=== PATIENT | male | born 1945 | race Caucasian/White ===

== ENCOUNTER 2017-05-18 16:07 | Inpatient (IN) | payer MEDICARE, BC ==
[~2017-05-18] VITALS: Ht 174 cm; Wt 90.2 kg
[~2017-05-18 16:07] MED LIST: LISI-363 PO; METO50CR PO; SIMV5TAB3 PO
[2017-05-18] MEDS ORDERED: ACETAMINOPHEN/HYDROcodone 325 MG/5 MG TAB PO PRN (19:45)
[2017-05-18] MEDS ORDERED: LACTULOSE SYRUP 20 GM/30 ML CUP PO PRN (19:45)
[2017-05-18 20:00] VITALS: BP 167/77; PULSE 90; RESP 18; TEMP 99.8; O2SAT 97
[2017-05-18] MEDS ORDERED: DEXTROSE 50% IN WATER 50 ML VIAL(D50) IV PUSH PRN (20:15)
[2017-05-18] MEDS ORDERED: GLUCAGON 1 MG/ML VIAL OTHER PRN (20:15)
--- NOTE | 2017-05-18 20:21 | HHI.HP ---
HPI Service [facility] Hospitalists Primary Care Physician Non-Staff Admission Diagnosis Diagnoses: Travel History International Travel<30 Days: No Contact w/Intl Traveler <30 Da: No Traveled to Known Affected Are: No History of Present Illness 71-year-old male with past medical history significant for coronary artery disease status post CABG 5, type 2 diabetes mellitus, hypertension and hyperlipidemia presents to [facility] after sustaining a right femoral neck fracture. The patient reports he was walking his dog when his dog pulled him and he lost his balance falling directly onto his right hip on the concrete. He was taken to [facility] where an x-ray of the hip showed an acute significantly displaced and angulated transcervical right hip fracture involving the right femoral neck. The patient was transferred to [facility] for surgical repair. Laboratory values performed at [facility] were within normal limits, reviewed by me. The patient did have a chest x-ray done that showed pleural- parenchymal scarring above the lateral aspect of the left upper lung with an ill -defined opacity in the vicinity of the lingula. Recommend further evaluation with contrast CT. The patient has no history of lung disease and denies any shortness of breath. Review of Systems Denies fever or chills Denies blurry vision, otorrhea, rhinorrhea Denies sore throat and cough No chest pain, palpitations, shortness of breath No abdominal pain Denies constipation/diarrhea/nausea/vomiting Denies muscle pain/weakness. Endorses right hip pain. No rashes Past Family Social History Past Medical History Type 2 diabetes mellitus on metformin CAD Chronic low back/left hip pain Hypertension Hyperlipidemia Past Surgical History CABG 5 in 2009 Discectomy Tonsillectomy Reported Medications Reported Meds & Active Scripts Active Reported Metoprolol Succinate ER 50 mg (Metoprolol Succinate) 50 Mg Tab 50 Mg PO DAILY Simvastatin 5 Mg Tab 1 Tab PO HS Lisinopril 20 mg (Lisinopril) 20 Mg Tab 1 Tab PO DAILY Metformin Allergies: Coded Allergies: No Known Allergies (Unverified Allergy, Unknown, 05/18/17) Family History Mother with breast cancer. Father after a hip fracture, no known medical comorbidities. Social History Denies current tobacco use, has a [id number] history of smoking quit 1979. Occasional alcohol. Denies marijuana or illicit drugs. Physical Exam Physical Exam GENERAL: male lying in bed SKIN: No rashes, ecchymoses or lesions. Cool and dry. HEAD: Atraumatic. Normocephalic. No temporal or scalp tenderness. EYES: Pupils equal round and reactive. Extraocular motions intact. No scleral icterus. No injection or drainage. ENT: Nose without bleeding, purulent drainage or septal hematoma. Throat without erythema, tonsillar hypertrophy or exudate. Uvula midline. Airway patent. NECK: Trachea midline. No JVD or lymphadenopathy. Supple, nontender, no meningeal signs. CARDIOVASCULAR: Regular rate and rhythm without murmurs, gallops, or rubs. RESPIRATORY: Clear to auscultation. Breath sounds equal bilaterally. No wheezes , rales, or rhonchi. GASTROINTESTINAL: Abdomen soft, non-tender, nondistended. No hepato-splenomegaly , or palpable masses. No guarding. MUSCULOSKELETAL: Extremities without clubbing, cyanosis, or edema. No joint tenderness, effusion, or edema noted. 2+ peripheral pulses. NEUROLOGICAL: Awake and alert. Cranial nerves II through XII intact. Motor and sensory grossly within normal limits. Normal speech. Caprini VTE Risk Assessment Caprini VTE Risk Assessment: Mod/High Risk (score >= 2) Caprini Risk Assessment Model Point Value = 1 Point Value = 2 Point Value = 3 Point Value = 5 Age 41-60 Minor surgery BMI > 25 kg/m2 Swollen legs Varicose veins or History of unexplained or recurrent spontaneous Oral contraceptives or hormone replacement Sepsis (< 1 month) Serious lung disease, including pneumonia (< 1 month) Abnormal pulmonary function Acute myocardial infarction Congestive heart failure (< 1 month) History of inflammatory bowel disease Medical patient at bed rest Age 61-74 Arthroscopic surgery Major open surgery (> 45 min) Laparoscopic surgery (> 45 min) Malignancy Confined to bed (> 72 hours) Immobilizing plaster cast Central venous access Age >= 75 History of VTE Family history of VTE Factor V Leiden Prothrombin [id number] Lupus anticoagulant Anticardiolipin antibodies Elevated serum homocysteine Heparin-induced thrombocytopenia Other congenital or acquired thrombophilia Stroke (< 1 month) Elective arthroplasty Hip, pelvis, or leg fracture Acute spinal cord injury (< 1 month) Prophylaxis Regimen Total Risk Factor Score Risk Level Prophylaxis Regimen 0-1 Low Early ambulation 2 Moderate Order ONE of the following: *Sequential Compression Device (SCD) *Heparin 5000 units SQ BID 3-4 Higher Order ONE of the following medications: *Heparin 5000 units SQ TID *Enoxaparin/Lovenox 40 mg SQ daily (WT < 150 kg, CrCl > 30 mL/min) *Enoxaparin/Lovenox 30 mg SQ daily (WT < 150 kg, CrCl > 10-29 mL/min) *Enoxaparin/Lovenox 30 mg SQ BID (WT < 150 kg, CrCl > 30 mL/min) AND/OR *Sequential Compression Device (SCD) 5 or more Highest Order ONE of the following medications: *Heparin 5000 units SQ TID (Preferred with Epidurals) *Enoxaparin/Lovenox 40 mg SQ daily (WT < 150 kg, CrCl > 30 mL/min) *Enoxaparin/Lovenox 30 mg SQ daily (WT < 150 kg, CrCl > 10-29 mL/min) *Enoxaparin/Lovenox 30 mg SQ BID (WT < 150 kg, CrCl > 30 mL/min) AND *Sequential Compression Device (SCD) Assessment and Plan Assessment and Plan 71-year-old male with coronary artery disease status post CABG 5, hypertension , hyperlipidemia and type 2 diabetes mellitus presents to [facility] after sustaining a right femoral neck fracture. 1. Right femoral neck fracture Orthopedic surgery consulted, appreciate assistance Nothing by mouth after midnight Pain control with [place] and morphine 2. Abnormal chest x-ray Chest x-ray done at [facility] significant for pleural scarring about the lateral aspect of the left lung with an ill-defined opacity in the vicinity of the lingula Recommend contrast chest CT for further characterization once patient clinically stable 3. Type 2 diabetes mellitus Holding home metformin Sliding scale insulin 4. Hypertension Continue home metoprolol and lisinopril 5. Hyperlipidemia Continue home statin FEN Nothing by mouth after midnight NS at 100cc/hr Electrolytes within normal limits, monitor Holding pharmacologic anticoagulation in anticipation of OR tomorrow Physician Certification 2 Midnight Certification Type: Admission for Inpatient Services Order for Inpatient Services The services are ordered in accordance with Medicare regulations or non- Medicare payer requirements, as applicable. In the case of services not specified as inpatient-only, they are appropriately provided as inpatient services in accordance with the 2-midnight benchmark. Estimated LOS (days): 2 2 days is the estimated time the patient will need to remain in the hospital, assuming treatment plan goals are met and no additional complications. Post-Hospital Plan: Not yet determined Ella Alva MD May 18, 2017 20:21
[2017-05-18 22:30] VITALS: PULSE 81
[2017-05-18] MEDS: INSULIN ASPART SUPPLEMENTAL SCALE SQ SCH (22:30)
[2017-05-18 22:54] VITALS: PULSE 75
[2017-05-18] MEDS: MORPHINE SULFATE 4 MG/ML INJ IV PUSH PRN (22:54)
[2017-05-18] MEDS: SODIUM CHLOR 0.9% 1000 ML INJ 1,000 ML IV SCH (22:54)
[2017-05-18] MEDS: PRAVASTATIN SOD 10 MG TAB PO SCH (22:55)
[2017-05-18] MEDS ORDERED: POVIDONE IODINE 5% (ANTISEPSIS KIT) 4 APPLICATIONS EACH NARE PRN (23:45)
[2017-05-18] MEDS ORDERED: CHLORHEXIDINE GLUCONATE 2 % 1 PACK (2 CLOTHS) TOPICAL PRN (23:45)
[2017-05-18] MEDS ORDERED: LACTATED RINGER'S 1000 ML IV PRN (23:45)
[2017-05-18] MEDS ORDERED: SODIUM CHLORID 0.9% 500 ML IV PRN (23:45)
[2017-05-19] VITALS (7 sets, daily range): BP systolic 142–205; BP diastolic 67–84; PULSE 67–83; RESP 16–18; TEMP 97.2–100.8; O2SAT 94–97
[2017-05-19] MEDS: ACETAMINOPHEN/HYDROcodone 325 MG/10 MG TAB PO PRN ×3 (01:18→20:09)
[2017-05-19] MEDS: MORPHINE SULFATE 4 MG/ML INJ IV PUSH PRN ×3 (03:21→17:13)
[2017-05-19 06:06] LABS: AUTOMATED NEUTROPHIL # 9.7 TH/MM3 (1.8-7.7); BASOPHIL % 0.3 % (0.0-2.0); EOSINOPHIL # 0.5 TH/MM3 (0-0.4); EOSINOPHIL % 3.8 % (0.0-4.0); HEMATOCRIT 36.3 % (39.0-51.0); HEMO FLAGS DIFF FINAL; LYMPH % 10.3 % (9.0-44.0); LYMPHOCYTE # 1.3 TH/MM3 (1.0-4.8); MEAN CELL VOLUME 91.9 FL (80.0-100.0); MEAN CORPUSCULAR HEMOGLOBIN 30.5 PG (27.0-34.0); MEAN CORPUSCULAR HGB CONC 33.2 % (32.0-36.0); MONO % 6.9 % (0.0-8.0); NEUT % 78.7 % (16.0-70.0); PLATELET COUNT 107 TH/MM3 (150-450); RED BLOOD COUNT 3.95 MIL/MM3 (4.50-5.90); RED CELL DISTRIBUTION WIDTH 16.1 % (11.6-17.2); WHITE BLOOD COUNT 12.3 TH/MM3 (4.0-11.0)
[2017-05-19] MEDS: SODIUM CHLOR 0.9% 1000 ML INJ 1,000 ML IV SCH ×3 (06:21→20:10)
[2017-05-19 06:38] LABS: BICARBONATE 23.8 MEQ/L (21.0-32.0); POTASSIUM 3.7 MEQ/L (3.5-5.1)
[2017-05-19] MEDS: METOPROLOL SUCCINATE 50 MG EXTENDED RELEASE TAB PO SCH (07:50)
[2017-05-19] MEDS: LISINOPRIL 20 MG TAB PO SCH (07:50)
[2017-05-19] MEDS: INSULIN ASPART SUPPLEMENTAL SCALE SQ SCH ×4 (07:50→20:09)
--- NOTE | 2017-05-19 11:54 | RADRPT ---
EXAM DATE/TIME: 05/19/2017 11:15 [facility] COMPARISON: No previous studies available for comparison. INDICATIONS : Right hip pain, fell yesterday. MEDICAL HISTORY : Foot deformity. SURGICAL HISTORY : None. ENCOUNTER: Initial ACUITY: 2 days PAIN SCORE: 10/10 LOCATION: Right hip FINDINGS: A mildly displaced and angulated subcapital right femoral neck fracture is identified. The femoral he ad appears grossly intact and remains situated over the acetabulum. CONCLUSION: Subcapital right femoral neck fracture Chadwick Toney MD on May 19, 2017 at 11:51 Board Certified Radiologist. This report was verified electronically.
--- NOTE | 2017-05-19 13:04 | HHI.PR ---
Subjective Remarks Follow up hip fracture, CAD, diabetes. Patient states that he is having pain in his right hip. No other complaints at this time. Objective Vitals Vital Signs Date Time Temp Pulse Resp B/P (MAP) Pulse Ox O2 Delivery O2 Flow Rate FiO2 05/19/17 11:06 16 05/19/17 08:00 97.2 76 16 152/70 (97) 95 05/19/17 04:00 98.5 78 18 145/74 (97) 96 05/19/17 03:25 17 05/19/17 00:16 Room Air 05/19/17 00:00 99.5 80 18 143/72 (95) 96 05/18/17 22:54 75 05/18/17 22:30 81 05/18/17 20:00 99.8 90 18 167/77 (107) 97 I/O 05/18/17 05/18/17 05/18/17 05/19/17 05/19/17 05/19/17 07:00 15:00 23:00 07:00 15:00 23:00 Intake Total 360 ml 1000 ml Output Total 500 ml Balance 360 ml 500 ml Intake Oral 360 ml 0 ml IV Total 1000 ml Output Urine Total 500 ml # Voids 0 # Bowel Movements 0 0 Result Diagram: 05/19/17 0530 05/19/17 0530 Imaging Last Impressions Hip X-Ray 05/19/17 0000 Signed Impressions: Service Date/Time: Friday, May 19, 2017 11:15 - CONCLUSION: Subcapital right femoral neck fracture Chadwick Toney MD Objective Remarks General: No acute distress. Heart: Regular rate and rhythm. No murmur. Lungs: Clear to auscultation bilaterally. No wheezes, rales, or rhonchi. Breathing is nonlabored. Abdomen: Soft, nontender, nondistended. Extremities: No lower extremity edema. Psych: Alert and oriented. Procedures None Urinary Catheter: No Vascular Central Line Catheter: No A/P Problem List: (1) Fracture of femoral neck, right ICD Code: S72.001A - Fracture of unspecified part of neck of right femur, initial encounter for closed fracture Status: Acute (2) Diabetes mellitus ICD Code: E11.9 - Type 2 diabetes mellitus without complications Status: Chronic (3) Hyperlipidemia ICD Code: E78.5 - Hyperlipidemia, unspecified Status: Chronic (4) Hypertension ICD Code: I10 - Essential (primary) hypertension Status: Chronic Assessment and Plan 1. Right femoral neck fracture: Orthopedic surgery consulted. Planning for surgery tomorrow. Continue pain control. Nothing by mouth after midnight. 2. Abnormal chest x-ray: Chest x-ray that was done at [facility] showed pleural scarring in the lateral aspect of the left lung with an ill-defined opacity in the vicinity of the lingula. Contrast chest CT for further evaluation once patient is clinically stable. 3. Diabetes mellitus type 2: Metformin on hold. Monitor Accu-Cheks and cover with sliding scale insulin. 4. Hypertension: Continue metoprolol, lisinopril. 5. Hyperlipidemia: Continue statin. 6. DVT prophylaxis: Chemical prophylaxis on hold in anticipation of surgery. 7. Coronary artery disease: Currently asymptomatic. Patient has significant history including CABG. Will consult his cook 3 pastry, Dr. Cam, for further evaluation preoperatively. Problem Qualifiers (1) Diabetes mellitus: Ray Herrera MD May 19, 2017 13:04
--- NOTE | 2017-05-19 14:49 | MB ---
cc: ANITA FRANCOIS M.D. DATE OF CONSULTATION: 05/19/2017 REASON FOR CONSULTATION Evaluation for pre-op clearance. CHIEF COMPLAINT Hip fracture. HISTORY OF PRESENT ILLNESS This is a 71-year-old man with known heart disease. He had bypass surgery in the year 2009 for left main and triple-vessel disease. He had a cath in December 2010 showing patent vein grafts to sequential obtuse marginals, diagonal branch and right coronary artery, and patent NEW to the LAD. He does not have anginal symptoms. Prior to his bypass he had indigestion. He does take Nexium currently, but is not having any anginal or chest discomfort or indigestion type symptoms. He is not that active but plays golf and walks his dog. His dog pulled on him and that is how he ended up falling and having the hip fracture. He denies shortness of breath, syncope, pre-syncope, arrhythmias. Denies any swelling in his feet. He is an ex-smoker. He has hypertension, diabetes, elevated cholesterol. He denies noncompliance with his medications. There are no allergies. MEDICATIONS Medications in the office include: 1. 81 mg aspirin. 2. Lisinopril 20 mg. 3. Metformin. 4. Metoprolol 25 mg b.i.d. 5. Nitroglycerin sublingual. 6. Simvastatin 40 mg. ALLERGIES None. PAST SURGICAL HISTORY 1. Back surgery. 2. Bypass surgery. PAST MEDICAL HISTORY 1. Prior iron-deficiency anemia. 2. Meyers's esophagus. 3. Coronary artery disease. 4. Carotid disease. 5. Chronic kidney disease, stage II/III. 6. Type 2 diabetes. 7. Esophageal reflux. 8. Hyperlipidemia. 9. Hypertension. 10.Previous melanoma. 11.Obesity. 12.Degenerate joint disease. REVIEW OF SYSTEMS Notable only for joint pain and back pain. He does say he has diminished peripheral pulses and has seen Dr. Merino before but has not required any follow-up procedures. PHYSICAL EXAMINATION GENERAL: An obese white male in no acute distress. VITAL SIGNS: Charted. HEENT: Unremarkable. NECK: No JVD. No bruits. CHEST: Clear to auscultation. CARDIAC: Normal first and second heart sounds, regular rate and rhythm without murmurs or gallops. ABDOMEN: Soft, nontender. No masses or organomegaly. EXTREMITIES: Diminished pedal pulses. EKG EKG demonstrates sinus rhythm at 81 beats bpm. IMPRESSION AND RECOMMENDATIONS A 71-year-old man with previous bypass surgery has no cardiac symptomatology. His troponin is negative. EKG shows no ischemia. He can be cleared for hip surgery. Cardiac surgical risk is somewhat increased because of multiple risk factors and heart disease, but there is nothing prohibitive that would prevent him from having surgery at this point. Recommend continuing beta blockers throughout the perioperative period. I will be available p.r.n. Please call for any questions. MD KRISSY Sosa/JANET /2:23 PM /2:34 PM MTDTonya
[2017-05-19] MEDS ORDERED: BISACODYL 10 MG SUPP RECTAL PRN (15:15)
[2017-05-19] MEDS ORDERED: LACTULOSE SYRUP 20 GM/30 ML CUP PO PRN (15:15)
[2017-05-19] MEDS ORDERED: MAGNESIUM HYDROXIDE SUSP 30 ML CUP PO PRN (15:15)
[2017-05-19] MEDS ORDERED: SENNOSIDES 8.6 MG TAB PO PRN (15:15)
--- NOTE | 2017-05-19 17:29 | MB ---
cc: GUALBERTO CHRISTIAN DATE OF CONSULTATION: 05/19/2017 REASON FOR CONSULTATION: The patient is a 71-year-old white male who was in his usual state of reasonably good health until the day of admission at which time he reports he was walking his dog and apparently the dog lunged forward causing the patient to lose his balance and fall onto his right hip with the immediate onset of pain being noted. He was unable to ambulate thereafter, for which an ambulance was summoned transporting the patient to the emergency room of [facility]. He underwent initial evaluation at that time including x-ray studies with a fracture of his right hip being identified. The patient thereafter requested to be transferred to [facility] for further disposition including definitive treatment of his hip fracture might be completed. This has been accomplished with orthopedic consultation thereafter being requested of the undersigned physician. PAST MEDICAL HISTORY: The patient's past medical history regarding hospitalizations and surgeries have included cardiac bypass surgery. lumbar diskectomy Tonsillectomy Colonoscopy. MEDICAL ILLNESSES: His medical illnesses include type 2 diabetes Hypertension Hyperlipidemia Coronary artery disease. MEDICATIONS Current medications apparently include 1. Metoprolol 25 mg twice daily. 2. Metformin. 3. Lisinopril 20 mg daily. 4. Simvastatin 40 mg daily 5. 81 mg Aspirin tablet daily. 6. Nitroglycerin as apparently utilized on a p.r.n. basis. 7. The patient advises that he does not conform any specific dietary restrictions with regards to his diabetes. REVIEW OF SYSTEMS review of systems is essentially unremarkable and noncontributory. FAMILY HISTORY The patient has been for 48 years. His is 71 years of age with a history of lupus. He has one son and one daughter both of whom are described as being in good health. Family history is otherwise positive for breast cancer. 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 He completed a college degree at the [employer]. He denies active use of tobacco, ethanol consumption on an occasional basis. PHYSICAL EXAMINATION: IN GENERAL: Physical examination at this time reveals a 71-year-old white male resting quietly in bed with mild distress as related to his right hip. Any attempted motion of the hip joint elicits obvious of pain response. He is maintaining the hip in a slightly flexed and externally rotated orientation. Active toe motion distally. Sensory grossly intact mobility of the left lower extremity is without significant pain but that eliciting contralateral hip discomfort. RADIOLOGIC: A review of the patient's radiographs have demonstrated a mild to moderately displaced subcapital femoral neck fracture in varus orientation. IMPRESSION Displaced right femoral neck fracture. PLAN Findings were reviewed with the patient in the presence of his upon completion of today's evaluation, recommendation has been made to proceed with operative intervention that will involve arthroplasty of the right hip with the anticipation of insertion of a bipolar prosthesis. The nature of the planned surgical procedure the potential complications and risks associated. The expectations of surgery and the consent form were thoroughly reviewed with the patient at this time. He has indicated full understanding regarding all the above and given consent to proceed with treatment as outlined. Cardiology evaluation and clearance for surgery has been completed by Dr. Shine Turcios. The patient is also apparently been cleared for surgery by the admitting physician Dr. Ella Stratton. I appreciate the opportunity of seeing Mr. Anderson this time in will continue to follow for orthopedic management. He has been scheduled for surgery tomorrow May 20, 2017. MD JOSE ALFREDO De La Torre/veronika /5:08 PM /5:22 PM
--- NOTE | 2017-05-19 18:35 | EKG ---
Date Performed: 05/18/2017 Time Performed: 22:31:07 PTAGE: 71 years EKG: Sinus rhythm NORMAL ECG NO PREVIOUS TRACING DOCTOR: Honey Tejada Interpretating Date/Time 05/19/2017 18:34:26
[2017-05-19] MEDS: DOCUSATE SODIUM 50 MG/SENNA 8.6 MG TAB PO SCH (20:09)
[2017-05-19] MEDS: PRAVASTATIN SOD 10 MG TAB PO SCH (20:09)
[2017-05-20] VITALS: BP 188/75; PULSE 87; RESP 17; TEMP 99.1; O2SAT 95
[2017-05-20] MEDS ORDERED: cloNIDine HCL 0.1 MG TAB PO ONE (00:30)
[2017-05-20] MEDS: DEXTROSE 5% IN WATE 1000ML INJ 1,000 ML IV SCH (00:42)
[2017-05-20 04:00] VITALS: BP 136/69; PULSE 71; RESP 16; TEMP 98.3; O2SAT 97
[2017-05-20] MEDS: ACETAMINOPHEN/HYDROcodone 325 MG/10 MG TAB PO PRN (05:07)
[2017-05-20] MEDS: MORPHINE SULFATE 4 MG/ML INJ IV PUSH PRN (06:46)
[2017-05-20 06:50] LABS: AUTOMATED NEUTROPHIL # 7.7 TH/MM3 (1.8-7.7); BASOPHIL % 0.3 % (0.0-2.0); EOSINOPHIL # 0.4 TH/MM3 (0-0.4); EOSINOPHIL % 4.3 % (0.0-4.0); HEMATOCRIT 34.1 % (39.0-51.0); LYMPH % 9.3 % (9.0-44.0); LYMPHOCYTE # 0.9 TH/MM3 (1.0-4.8); MEAN CELL VOLUME 91.7 FL (80.0-100.0); MEAN CORPUSCULAR HEMOGLOBIN 30.7 PG (27.0-34.0); MEAN CORPUSCULAR HGB CONC 33.5 % (32.0-36.0); MONO % 7.7 % (0.0-8.0); NEUT % 78.4 % (16.0-70.0); PLATELET COUNT 96 TH/MM3 (150-450); RED BLOOD COUNT 3.72 MIL/MM3 (4.50-5.90); WHITE BLOOD COUNT 9.9 TH/MM3 (4.0-11.0)
[2017-05-20 07:17] LABS: HEMO FLAGS AUTO DIFF
[2017-05-20 07:40] VITALS: BP 121/62; PULSE 71; RESP 17; TEMP 97; O2SAT 95
[2017-05-20 08:09] LABS: PLATELET ESTIMATE SMEAR LOW (NORMAL); PLATELET MORPHOLOGY NORMAL (NORMAL); SCAN/DIFF AUTO DIFF CONFIRMED
[2017-05-20] MEDS: DOCUSATE SODIUM 50 MG/SENNA 8.6 MG TAB PO SCH ×2 (08:31→21:00)
[2017-05-20] MEDS: METOPROLOL SUCCINATE 50 MG EXTENDED RELEASE TAB PO SCH (08:32)
[2017-05-20] MEDS: LISINOPRIL 20 MG TAB PO SCH (08:32)
[2017-05-20] MEDS: INSULIN ASPART SUPPLEMENTAL SCALE SQ SCH ×4 (08:52→21:00)
[2017-05-20] MEDS ORDERED: ceFAZolin INJ 1,000 MG VIAL ONE (10:14)
[2017-05-20 11:44] VITALS: BP 152/70; PULSE 67; RESP 17; TEMP 97.9; O2SAT 99
[2017-05-20] MEDS ORDERED: LACTATED RINGER'S 1000 ML INJ 2,000 ML IV ONE (12:00)
[2017-05-20] MEDS ORDERED: ROCURONIUM INJ 50 MG/5 ML SYRINGE IV PUSH ONE (12:00)
[2017-05-20] MEDS ORDERED: ONDANSETRON HCL 4 MG/2 ML VIAL IV PUSH ONE (12:00)
[2017-05-20] MEDS ORDERED: MIDAZOLAM HCL 2 MG/2 ML VIAL IV ONE (12:00)
[2017-05-20] MEDS ORDERED: PROPOFOL 200 MG/20 ML AMP IV ONE (12:00)
[2017-05-20] MEDS ORDERED: LIDOCAINE HCL 1% PF 5 ML AMPULE OTHER ONE (12:00)
[2017-05-20] MEDS ORDERED: PHENYLEPH/NS 1000 MCG/10 ML SYR IV ONE (12:00)
[2017-05-20] MEDS ORDERED: GLYCOPYRROLATE 1 MG/5 ML SYRINGE IV PUSH ONE (12:00)
[2017-05-20] MEDS ORDERED: NEOSTIGMINE 3 MG/3 ML SYR IV ONE (12:00)
[2017-05-20] MEDS ORDERED: DEXAMETHASONE SOD PHOS 4 MG/ML VIAL IV ONE (12:00)
[2017-05-20] MEDS ORDERED: ceFAZolin 2 GM PREMIX 50 ML ONE (12:43)
[2017-05-20] MEDS ORDERED: DO NOT ADM ANY ANTICOAGULANT DRUGS PRN (14:57)
[2017-05-20] MEDS ORDERED: ZOLPIDEM TARTRATE 5 MG TAB PO PRN (15:00)
[2017-05-20] MEDS ORDERED: Post-op Orders (for Pharmacy) MISC XX ONE (15:00)
[2017-05-20] MEDS ORDERED: ONDANSETRON HCL 4 MG/2 ML VIAL IVP PRN (15:00)
[2017-05-20] MEDS ORDERED: ACETAMINOPHEN/HYDROcodone 325 MG/5 MG TAB PO PRN (15:00)
[2017-05-20] MEDS ORDERED: ACETAMINOPHEN 325 MG TAB PO PRN (15:00)
[2017-05-20] MEDS ORDERED: SODIUM CHLORIDE 0.9% FLUSH 5 ML FLUSH IVF PRN (15:00)
[2017-05-20] MEDS ORDERED: MISCELLANEOUS PHARMACY INFORMATION XX ONE (15:00)
[2017-05-20] MEDS ORDERED: *ENALAPRILAT 1.25 MG/ML VIAL PERIprocedural Use ONLY ONE ×2 (16:02→16:32)
--- NOTE | 2017-05-20 16:09 | HHI.PR ---
Subjective Remarks Follow up diabetes, CAD. Patient seen in PACU. States that he feels "confused". No other complaints at this time. Patient had decreased O2 sats in PACU, but now 99% on 2L. Objective Vitals Vital Signs Date Time Temp Pulse Resp B/P (MAP) Pulse Ox O2 Delivery O2 Flow Rate FiO2 05/20/17 14:58 97.7 72 20 119/57 (77) 94 Nasal Cannula 4 05/20/17 11:44 97.9 67 17 152/70 (97) 99 05/20/17 07:40 97.0 71 17 121/62 (81) 95 05/20/17 04:00 98.3 71 16 136/69 (91) 97 05/20/17 00:00 99.1 87 17 188/75 (112) 95 05/19/17 20:06 75 05/19/17 19:00 100.8 82 16 205/84 (124) 95 05/19/17 17:18 16 I/O 05/19/17 05/19/17 05/19/17 05/20/17 05/20/17 05/20/17 07:00 15:00 23:00 07:00 15:00 23:00 Intake Total 1000 ml 0 ml 820 ml 0 ml Output Total 500 ml 700 ml 750 ml 600 ml Balance 500 ml -700 ml 0 ml 70 ml -600 ml Intake Oral 0 ml 0 ml 200 ml 0 ml IV Total 1000 ml 620 ml Output Urine Total 500 ml 700 ml 750 ml 600 ml # Voids 1 # Bowel Movements 0 0 0 0 0 Result Diagram: 05/20/17 0607 05/19/17 0530 Imaging Last Impressions Hip X-Ray 05/19/17 0000 Signed Impressions: Service Date/Time: Friday, May 19, 2017 11:15 - CONCLUSION: Subcapital right femoral neck fracture Chadwick Toney MD Objective Remarks General: No acute distress. Heart: Regular rate and rhythm. No murmur. Lungs: Clear to auscultation bilaterally. No wheezes, rales, or rhonchi. Breathing is nonlabored. Abdomen: Soft, nontender, nondistended. Extremities: No lower extremity edema. Psych: Somewhat sedated. Awakens and answers questions. Procedures None Urinary Catheter: No Vascular Central Line Catheter: No A/P Problem List: (1) Fracture of femoral neck, right ICD Code: S72.001A - Fracture of unspecified part of neck of right femur, initial encounter for closed fracture Status: Acute (2) Diabetes mellitus ICD Code: E11.9 - Type 2 diabetes mellitus without complications Status: Chronic (3) Hyperlipidemia ICD Code: E78.5 - Hyperlipidemia, unspecified Status: Chronic (4) Hypertension ICD Code: I10 - Essential (primary) hypertension Status: Chronic Assessment and Plan 1. Right femoral neck fracture: S/P ORIF. Management per orthopedic surgery. Continue pain control, bowel regimen. 2. Abnormal chest x-ray: Chest x-ray that was done at [facility] showed pleural scarring in the lateral aspect of the left lung with an ill-defined opacity in the vicinity of the lingula. Contrast chest CT for further evaluation once patient is clinically stable. 3. Diabetes mellitus type 2: Metformin on hold. Monitor Accu-Cheks and cover with sliding scale insulin. 4. Hypertension: Continue metoprolol, lisinopril. 5. Hyperlipidemia: Continue statin. 6. DVT prophylaxis: Chemical prophylaxis on hold in anticipation of surgery. 7. Coronary artery disease: Currently asymptomatic. Patient has significant history including CABG. Evaluated by cardiology. Problem Qualifiers (1) Diabetes mellitus: Ray Herrera MD May 20, 2017 16:09
--- NOTE | 2017-05-20 16:20 | RADRPT ---
EXAM DATE/TIME: 05/20/2017 15:37 [facility] COMPARISON: HIP RIGHT AP ONLY WO AP PELVIS, May 19, 2017, 11:15. INDICATIONS : Post op right hip. MEDICAL HISTORY : Foot deformity. SURGICAL HISTORY : Right hip replacement. ENCOUNTER: Initial ACUITY: 1 day PAIN SCORE: Non-responsive. LOCATION: Right hip. FINDINGS: Single view of the right hip demonstrates interval right hip arthroplasty. Hardware appears in anatom ic alignment and is well-positioned. No significant new acute bony fracture. Remainder of the exam is unchanged. CONCLUSION: 1. Right hip arthroplasty in anatomic alignment, as above. Wyatt Hamlin MD on May 20, 2017 at 16:17 Board Certified Radiologist. This report was verified electronically.
[2017-05-20] MEDS ORDERED: *LABETALOL HCL 100 MG/20 ML VIAL PERIprocedural Use ONLY ONE (17:24)
[2017-05-20] MEDS: ACETAMINOPHEN/HYDROcodone 325 MG/5 MG TAB PO PRN (18:47)
[2017-05-20 19:25] VITALS: BP 163/87; PULSE 89; RESP 19; TEMP 97.4; O2SAT 99
[2017-05-20] MEDS: SODIUM CHLORIDE 0.9% FLUSH 5 ML FLUSH IVF SCH (21:00)
[2017-05-20] MEDS: PRAVASTATIN SOD 10 MG TAB PO SCH (21:14)
--- NOTE | 2017-05-20 21:21 | MP ---
cc: GUALBERTO COON M.D. DATE OF SURGERY: 05/20/2017 PREOPERATIVE DIAGNOSIS: Right subcapital femoral neck fracture. POSTOPERATIVE DIAGNOSIS Right subcapital femoral neck fracture. PROCEDURE: Hemiarthroplasty right hip with insertion of bipolar prosthesis. SURGEON Gualberto Coon M.D. ANESTHESIA General endotracheal anesthesia FORMAT Following the induction of satisfactory general anesthesia by endotracheal intubation as completed per the Department of Anesthesia, the patient was transferred from his hospital bed onto the operating table where he was positioned in a left lateral decubitus fashion. The right hip and lower extremity proper were isolated with a U drape, thereafter, being prepped with Betadine solution and draped into a sterile field in the routine manner. Prior to initiation of the actual procedure the standard time-out protocol was completed. All parameters were appropriately addressed and confirmed by operating room personnel. A standard posterolateral approach to the hip was initiated through a sharp skin incision developed through underlying subcutaneous tissue with hemostasis maintained by electrocautery. By deepening dissection the fascia overlying the gluteus musculature was exposed and thereafter sharply incised to the limits of the incision. The underlying gluteus fibers being bluntly divided. Progressive dissection facilitated exposure of the short external rotators structures, the piriformis tendon being utilized as anatomical landmark. Division of these structures was completed in a superior to inferior orientation and reflected medially exposing the posterior capsule. The sciatic nerve was protected. An L-shaped capsulotomy was accomplished. The fracture hematoma evacuated and a obvious subcapital femoral neck fracture identified. The corkscrew was utilized to extract the femoral head from the confines of the acetabulum and femoral neck was thereafter contoured with power saw and thereafter a sequential rasping and broaching was accomplished throughout the proximal femur with a size 10 sizing determined to be satisfactory. Trial reduction of the femoral head noted 48 mm sizing to be satisfactory. A trial reduction followed utilizing the 10 mm femoral stem with a 48 mm femoral head and standard neck length adapter. The hip readily reduced and was carried through a passive range of motion with stability demonstrated at 90 degrees flexion and 45 degrees internal rotation. An open dislocation was completed, the trial components being removed. The wound was copiously irrigated with pulsating antibiotic solution, hemostasis being maintained by electrocautery. The 10 mm Echo Bimetric femoral stem was firmly seated to which a 48 mm bipolar head component with a standard neck length adapter was attached. Open reduction completed. Repeat range of motion again noted stability as previously described. Final irrigation was accomplished with hemostasis maintained. The posterior capsule was repaired with 0 Vicryl suture. Piriformis tendon and short external rotators structures were reapproximated in a similar manner. Fascia of the gluteus musculature was reapproximated with a running 0 Vicryl suture. The remaining portion of the wound was closed in layers in the routine manner, skin margins being reapproximated with a running subcuticular 3-0 Vicryl suture over which Steri-Strips were applied. Xeroform gauze and a bulky dry sterile dressing placed. The patient was repositioned into a supine orientation where an abduction splint was attached. Anesthesia was discontinued. He was thereafter transferred to a hospital bed and returned to the recovery room in satisfactory condition having tolerated his operative procedure well. Estimated blood loss was approximately 250 cc as determined per anesthesia. 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 Gualberto Coon MD [facility] /2:54 PM /9:07 PM
[2017-05-20 23:50] VITALS: BP 101/58; PULSE 79; RESP 18; TEMP 97.8; O2SAT 96
[2017-05-21] VITALS (8 sets, daily range): BP systolic 109–144; BP diastolic 50–61; PULSE 60–81; RESP 18–19; TEMP 97.9–98.9; O2SAT 95–99
[2017-05-21] MEDS: DEXTROSE 5% IN WATE 1000ML INJ 1,000 ML IV SCH (00:19)
[2017-05-21 06:57] LABS: HEMATOCRIT 30.9 % (39.0-51.0); REVIEW FLAG FINAL
[2017-05-21] MEDS ORDERED: METF1000 PO (08:04)
[2017-05-21] MEDS: INSULIN ASPART SUPPLEMENTAL SCALE SQ SCH ×4 (08:13→20:58)
[2017-05-21] MEDS: METOPROLOL SUCCINATE 50 MG EXTENDED RELEASE TAB PO SCH (08:14)
[2017-05-21] MEDS: LISINOPRIL 20 MG TAB PO SCH (08:14)
[2017-05-21] MEDS: DOCUSATE SODIUM 50 MG/SENNA 8.6 MG TAB PO SCH ×2 (08:14→20:53)
[2017-05-21] MEDS: ACETAMINOPHEN/HYDROcodone 325 MG/5 MG TAB PO PRN ×2 (08:15→21:22)
[2017-05-21] MEDS: SODIUM CHLORIDE 0.9% FLUSH 5 ML FLUSH IVF SCH ×2 (08:18→20:53)
[2017-05-21] MEDS ORDERED: NEXI20CA PO (08:19)
[2017-05-21] MEDS: PANTOPRAZOLE SOD 20 MG DELAYED RELEASE TAB PO SCH (12:46)
[2017-05-21] MEDS ORDERED: HYDR-3516 PO (14:48)
--- NOTE | 2017-05-21 14:50 | HHI.DS ---
cc: Nelson Barrera MD Discharge Summary Admission Date May 18, 2017 at 19:23 Discharge Date: May 21, 2017 Admitting Diagnosis Hip fracture (1) Fracture of femoral neck, right ICD Code: S72.001A - Fracture of unspecified part of neck of right femur, initial encounter for closed fracture Status: Acute (2) Diabetes mellitus ICD Code: E11.9 - Type 2 diabetes mellitus without complications Status: Chronic (3) Hyperlipidemia ICD Code: E78.5 - Hyperlipidemia, unspecified Status: Chronic (4) Hypertension ICD Code: I10 - Essential (primary) hypertension Status: Chronic Procedures 05/20/17 right hip hemiarthroplasty Brief History - From Admission 71-year-old male with past medical history significant for coronary artery disease status post CABG 5, type 2 diabetes mellitus, hypertension and hyperlipidemia presents to [place] after sustaining a right femoral neck fracture. The patient reports he was walking his dog when his dog pulled him and he lost his balance falling directly onto his right hip on the concrete. He was taken to [facility] where an x-ray of the hip showed an acute significantly displaced and angulated transcervical right hip fracture involving the right femoral neck. The patient was transferred to [place] for surgical repair. Laboratory values performed at [facility] were within normal limits, reviewed by me. The patient did have a chest x-ray done that showed pleural- parenchymal scarring above the lateral aspect of the left upper lung with an ill -defined opacity in the vicinity of the lingula. Recommend further evaluation with contrast CT. The patient has no history of lung disease and denies any shortness of breath. CBC/BMP: 05/21/17 0642 05/19/17 0530 Significant Findings Laboratory Tests Test 05/19/17 05:30 05/20/17 06:07 05/21/17 06:42 White Blood Count 12.3 TH/MM3 (4.0-11.0) Red Blood Count 3.95 MIL/MM3 (4.50-5.90) 3.72 MIL/MM3 (4.50-5.90) Hemoglobin 12.0 GM/DL (13.0-17.0) 11.4 GM/DL (13.0-17.0) 10.3 GM/DL (13.0-17.0) Hematocrit 36.3 % (39.0-51.0) 34.1 % (39.0-51.0) 30.9 % (39.0-51.0) Platelet Count 107 TH/MM3 (150-450) 96 TH/MM3 (150-450) Mean Platelet Volume 6.9 FL (7.0-11.0) Neutrophils (%) (Auto) 78.7 % (16.0-70.0) 78.4 % (16.0-70.0) Neutrophils # (Auto) 9.7 TH/MM3 (1.8-7.7) Eosinophils # (Auto) 0.5 TH/MM3 (0-0.4) Random Glucose 188 MG/DL (74-106) Estimat Glomerular Filtration Rate 72 ML/MIN (>89) Eosinophils (%) (Auto) 4.3 % (0.0-4.0) Lymphocytes # (Auto) 0.9 TH/MM3 (1.0-4.8) Platelet Estimate LOW (NORMAL) Imaging Last Impressions Hip X-Ray 05/20/17 2681 Signed Impressions: Service Date/Time: Saturday, May 20, 2017 15:37 - CONCLUSION: 1. Right hip arthroplasty in anatomic alignment, as above. Wyatt Hamlin MD PE at Discharge General: No acute distress. Heart: Regular rate and rhythm. No murmur. Lungs: Clear to auscultation bilaterally. No wheezes, rales, or rhonchi. Breathing is nonlabored. Abdomen: Soft, nontender, nondistended. Extremities: No lower extremity edema. Psych: Alert, oriented. Pt update on day of discharge The patient has no complaints at this time. States that he did not do well with physical therapy this morning, feeling very lightheaded. No lightheadedness at this time. No chest pain or dyspnea. No bowel movement yet. Hospital Course Patient was admitted for management of her right femoral neck fracture. Orthopedic surgery was consulted. Right hip hemiarthroplasty was done on . 2 postoperative care was continued. Patient was noted upon arrival to the ER at [facility] to have an abnormal chest x-ray. Chest CT was ordered and this was explained to the patient. He refused the CT, stating that he would have done as an outpatient and would talk to his primary care physician about it. He was cleared for discharge by orthopedic surgery and arrangements were made for discharge to [facility] for inpatient rehabilitation. Pt Condition on Discharge: Stable Discharge Disposition: Rehab Inpatient Discharge Time: > 30 minutes Discharge Instructions DIET: Follow Instructions for: Diabetic Diet Activities you can perform: See Additionl Instruction Other Activity Instructions: OOB with assistance Follow up Referrals: Orthopedics - 4 Weeks with Mando Coon MD New Medications: Hydrocodone/Acetaminophen (Hydrocodone-Acetamin 5-325 mg) 5 Mg-325 Mg Tablet 1 TAB PO Q4H PRN for PAIN LESS THAN 5 ON SCALE, #15 TAB 0 Refills Hydrocodone/Acetaminophen (Hydrocodone-Acetamin 5-325 mg) 5 Mg-325 Mg Tablet 2 TAB PO Q4H PRN for PAIN SCALE 5 TO 10, #15 TAB 0 Refills Continued Medications: Esomeprazole DR (Nexium) 20 Mg Capdr 20 MG PO DAILY, CAP 0 Refills Lisinopril 20 mg (Lisinopril 20 mg) 20 Mg Tab 1 TAB PO DAILY, TAB Metformin (Metformin) 1,000 Mg Tab 1000 MG PO BIDPC for Blood Sugar Management, #60 TAB 0 Refills Metoprolol Succinate ER 50 mg (Metoprolol Succinate ER 50 mg) 50 Mg Tab 50 MG PO DAILY, TAB Simvastatin (Simvastatin) 5 Mg Tab 1 TAB PO HS, TAB Ray Herrera MD May 21, 2017 14:50
--- NOTE | 2017-05-21 14:53 | HHI.DCPOC ---
Discharge Care Plan Diagnosis: (1) Diabetes mellitus (2) Hyperlipidemia (3) Hypertension (4) Fracture of femoral neck, right Goals to Promote Your Health * To prevent worsening of your condition and complications * To maintain your health at the optimal level Directions to Meet Your Goals Take your medications as prescribed Follow your dietary instruction Follow activity as directed Keep your appointments as scheduled Take your immunizations and boosters as scheduled If your symptoms worsen call your PCP, if no PCP go to Urgent Care Center or Emergency Room Smoking is Dangerous to Your Health. Avoid second hand smoke Call the 24-hour hour crisis hotline for domestic abuse at Ray Herrera MD May 21, 2017 14:53
[2017-05-21] MEDS: PRAVASTATIN SOD 10 MG TAB PO SCH (20:53)
[2017-05-22] MEDS: DEXTROSE 5% IN WATE 1000ML INJ 1,000 ML IV SCH (00:08)
[2017-05-22] MEDS: ACETAMINOPHEN/HYDROcodone 325 MG/5 MG TAB PO PRN ×2 (06:01→11:25)
[2017-05-22 07:30] VITALS: BP 122/57; PULSE 61; RESP 18; TEMP 98.4; O2SAT 96
[2017-05-22] MEDS: INSULIN ASPART SUPPLEMENTAL SCALE SQ SCH (08:00)
[2017-05-22 08:17] VITALS: PULSE 61
[2017-05-22] MEDS: LISINOPRIL 20 MG TAB PO SCH (08:18)
[2017-05-22] MEDS: PANTOPRAZOLE SOD 20 MG DELAYED RELEASE TAB PO SCH (08:18)
[2017-05-22] MEDS: SODIUM CHLORIDE 0.9% FLUSH 5 ML FLUSH IVF SCH (08:21)
[2017-05-22] MEDS: METOPROLOL SUCCINATE 50 MG EXTENDED RELEASE TAB PO SCH (08:21)
[2017-05-22] MEDS: DOCUSATE SODIUM 50 MG/SENNA 8.6 MG TAB PO SCH (08:21)
--- NOTE | 2017-05-22 09:03 | HHI.PR ---
Subjective Remarks Follow up hip fracture. Patient states that he feels better today. Less pain. No BM, but now reporting flatus. Objective Vitals Vital Signs Date Time Temp Pulse Resp B/P (MAP) Pulse Ox O2 Delivery O2 Flow Rate FiO2 05/22/17 07:30 98.4 61 18 122/57 (78) 96 05/21/17 23:05 98.1 60 18 117/57 (77) 96 05/21/17 21:07 21 05/21/17 20:00 98 Room Air 05/21/17 20:00 81 05/21/17 19:20 98.8 62 19 124/55 (78) 98 05/21/17 15:44 98.0 63 18 144/55 (84) 98 05/21/17 11:42 97.9 64 18 109/50 (69) 99 05/21/17 09:27 99 21 I/O 05/21/17 05/21/17 05/21/17 05/22/17 05/22/17 05/22/17 07:00 15:00 23:00 07:00 15:00 23:00 Intake Total 360 ml 650 ml 480 ml 360 ml Output Total 500 ml 500 ml Balance -140 ml 650 ml 480 ml -140 ml Intake Oral 360 ml 650 ml 480 ml 360 ml Output Urine Total 500 ml 500 ml # Voids 1 2 # Bowel Movements 0 0 0 0 Result Diagram: 05/21/17 0642 05/19/17 0530 Imaging Last Impressions Hip X-Ray 05/20/17 1453 Signed Impressions: Service Date/Time: Saturday, May 20, 2017 15:37 - CONCLUSION: 1. Right hip arthroplasty in anatomic alignment, as above. Wyatt Hamlin MD Objective Remarks General: No acute distress. Heart: Regular rate and rhythm. No murmur. Lungs: Clear to auscultation bilaterally. No wheezes, rales, or rhonchi. Breathing is nonlabored. Abdomen: Soft, nontender, nondistended. Extremities: No lower extremity edema. Psych: Alert, oriented. Procedures 05/20/17 right hip hemiarthroplasty Urinary Catheter: No Vascular Central Line Catheter: No A/P Problem List: (1) Fracture of femoral neck, right ICD Code: S72.001A - Fracture of unspecified part of neck of right femur, initial encounter for closed fracture Status: Acute (2) Diabetes mellitus ICD Code: E11.9 - Type 2 diabetes mellitus without complications Status: Chronic (3) Hyperlipidemia ICD Code: E78.5 - Hyperlipidemia, unspecified Status: Chronic (4) Hypertension ICD Code: I10 - Essential (primary) hypertension Status: Chronic Assessment and Plan 1. Right femoral neck fracture: S/P ORIF. Management per orthopedic surgery. Continue pain control, bowel regimen. 2. Abnormal chest x-ray: Chest x-ray that was done at [facility] showed pleural scarring in the lateral aspect of the left lung with an ill-defined opacity in the vicinity of the lingula. Contrast chest CT was ordered to further evaluate, however patient refused. He states that he will have this done as an outpatient and will discuss it further with his PCP. He has no respiratory symptoms at this time. 3. Diabetes mellitus type 2: Restart metformin. Monitor Accu-Cheks and cover with sliding scale insulin. 4. Hypertension: Continue metoprolol, lisinopril. 5. Hyperlipidemia: Continue statin. 6. DVT prophylaxis: SHAMIKA Meza. 7. Coronary artery disease: Currently asymptomatic. Patient has significant history including CABG. Evaluated by cardiology. Discharge Planning Discharge to inpatient rehabilitation today. The patient did not go to rehabilitation yesterday as he had not worked with physical therapy yet. Problem Qualifiers (1) Diabetes mellitus: Ray Herrera MD May 22, 2017 09:03
[2017-05-22] MEDS ORDERED: ASPI325T33 PO (09:13)
[2017-05-22] MEDS ORDERED: ASPIRIN EC 325 MG TABEC PO SCH (09:15)
[2017-05-22 10:25] VITALS: O2SAT 94
[2017-05-22 11:07] VITALS: BP 142/61; PULSE 57; RESP 20; TEMP 98.2; O2SAT 97
[2017-05-26] MEDS ORDERED: COMMODE 3-IN-11 MIS (14:51)
[2017-05-26] MEDS ORDERED: GETGO ROLLING W1 MI1 (14:51)
== END 2017-05-22 11:29 | DRG 470 ==
LOC: N06B 19:23
PROVIDERS: ADMIT Family Medicine; ATTEND Family Medicine
PROC: 0SRR0JA Replacement of Right Hip Joint, Femoral Surface with Synthetic Substitute, Uncemented, Open Approach (ICD-10-PCS; principal; 2017-05-20 12:49)
DX: S72.011A Unspecified intracapsular fracture of right femur, initial encounter for closed fracture (principal); E11.22 Type 2 diabetes mellitus with diabetic chronic kidney disease; N18.3 Chronic kidney disease, stage 3 (moderate); M19.90 Unspecified osteoarthritis, unspecified site; I12.9 Hypertensive chronic kidney disease with stage 1 through stage 4 chronic kidney disease, or unspecified chronic kidney disease; E78.5 Hyperlipidemia, unspecified; I25.10 Atherosclerotic heart disease of native coronary artery without angina pectoris; D50.9 Iron deficiency anemia, unspecified; J98.4 Other disorders of lung; K21.9 Gastro-esophageal reflux disease without esophagitis; K22.70 Barrett's esophagus without dysplasia; E66.9 Obesity, unspecified; Z85.820 Personal history of malignant melanoma of skin; Z95.1 Presence of aortocoronary bypass graft; Z87.891 Personal history of nicotine dependence; W01.0XXA Fall on same level from slipping, tripping and stumbling without subsequent striking against object, initial encounter; Y92.9 Unspecified place or not applicable; Z68.29 Body mass index [BMI] 29.0-29.9, adult
CPT/HCPCS: 73501; 80048; 82948; 85014; 85018; 85025; 86850; 86900; 86901; 88305; 88311; 93005; 94150; C1776; J0690; J1100; J1815; J2250; J2270; J2370; J2405; J2710; J3010; J7030; J7070; J7120

== ENCOUNTER → 2017-10-29 | Day surgery (SDC) | payer MEDICARE, BC ==
[~2017-10-29] MED LIST changes: +ASPI325T33 PO; +ASPI81TA23 PO; +COMMODE 3-IN-11 MIS; +DEXTROSE 50% IN WATER 50 ML SYRINGE ONE; +FERR325T18 PO; +GETGO ROLLING W1 MI1; +HYDR-3583 PO; +IOHEXOL 180 MG/ML 20 ML VIAL (for RAD DIAG) EPIDURAL ONE; +LIDOCAINE HCL 2% PF 2 ML VIAL ONE; -LISI-363 PO; +LISI-515 PO; +METF1000 PO; +METO1TAB9 PO; -METO50CR PO; +NEXI20CA PO; +PERI PO; +PROPOFOL 200 MG/20 ML AMP IV ONE; -SIMV5TAB3 PO; +SODIUM CHLORIDE 0.9% 10 ML VIAL ONE; +TRIAMCINOLONE ACETONIDE 40 MG/ML VIAL NERV BLOCK ONE; +ZOCO40TA PO; +ZOCO5TAB PO
--- NOTE | 2017-10-29 09:04 | M6 ---
cc: Mitul Hernández MD DATE: 10/29/2017 DATE OF PROCEDURE: 10/29/2017 PROCEDURE PERFORMED: Fluoroscopically guided left L3 selective nerve root block. DESCRIPTION OF PROCEDURE: History and physical was completed and signed. Consent was signed. Procedure site was marked. Medications were listed and reconciled. Pain score was recorded. Allergies were noted. Time out was taken. Fluoroscopy time was recorded where applicable. Sedation was administered or directed by Dr. Hernández. The patient was given oxygen. The patient was monitored by a registered nurse. Total procedure time was greater than 15 minutes. IV was started. Blood pressure cuff, pulse oximeter and EKG were applied. The patient was placed in the prone position on a Abdirashid table, sedated with small amounts of Propofol titrated to effect. Vital signs were monitored and remained stable throughout the procedure. The lumbar area was prepped with alcohol and a 10% Betadine solution. Fluoroscopy was used in both the AP and lateral projection to clearly visualize the L3-L4 neural foramen. Then, a 3-1/2 inch, 22-gauge Chiba needle was advanced toward the dorsal aspect of the foramen, just lateral to the neural foramen. Then, once properly positioned, 2 mL of Omnipaque dye was injected and seemed to spread along the nerve root. Then, the patient was given 1.5 mL of 2% lidocaine and 20 mg of Depo-Medrol directly on the nerve root. Following this, the patient was taken to the recovery room with stable vital signs, neurologically intact. MD YANI Kumar/LAURA , 08:53 AM , 09:03 AM
--- NOTE | 2017-10-29 09:18 | M6 ---
cc: Mitul Hernández MD DATE: 10/29/2017 DATE OF : 1945 PROCEDURE: Fluoroscopically guided left L3-L4 epidurogram. PREPROCEDURE DIAGNOSIS: Left lumbar radiculopathy. POSTPROCEDURE DIAGNOSIS: Left lumbar radiculopathy. Vital signs were taken including a pain score. Medications were checked and reconciled. Past medical history and past surgical history were updated. Allergies were updated. Any new imaging studies were reviewed. Referring physician records were reviewed. BMI was recorded. Smokers were counseled. Fall risk was discussed. INDICATIONS FOR PROCEDURE: Mr. Hickman has left lower extremity pain. He has previously had an L4 discectomy. He has recently seen a neurosurgeon. He has a left-sided bulging disk at L3-L4. Surgery may be necessary. If so, the site of the surgery needs to be identified. The patient comes today for a left L3 selective nerve root injection and he is scheduled next week for a left L4 selective nerve root injection. On each occasion, we need to inject Omnipaque dye to document how the dye spreads along the nerve root, not only distally, but whether it spreads medially through the neural foramen at each level. The patient could possibly have some scar tissue at L4, which would inhibit the flow of the medication. PROCEDURE: Under fluoroscopy with my needle was placed on the left L3 nerve root. 2 mL of Omnipaque dye was injected. The dye did spread distally along the nerve root, but it also spread through the neural foramen medially into the central epidural space with no obstruction to the flow. The images were saved for the patient's chart. PLAN: We will evaluate the patient immediately today and with followup over the next few days and the patient is scheduled to have a left L4 selective nerve root injection next week. We will compare the results with his L3 nerve root block. MD YANI Kumar/DARINEL , 08:57 AM , 09:17 AM
== END | disposition home or self-care (01) ==
LOC: PHSDC 06:36
PROVIDERS: ATTEND Pain Medicine Interventional Pain Medicine
DX: M51.16 Intervertebral disc disorders with radiculopathy, lumbar region (principal)
CPT/HCPCS: 64483; 99152; J3301; Q9965